=== PATIENT | male | born 1965 | race Caucasian/White ===

== ENCOUNTER 2021-03-10 10:55 | Day surgery (SDC) | payer MEDICARE, MEDICAID ==
[2021-03-08 13:24] LABS: COVID AG,FIA SOURCE NASOPHARYNGEAL
[~2021-03-10] VITALS: Ht 175.3 cm; Wt 109.1 kg
[~2021-03-10 10:55] MED LIST: SODIUM CHLORIDE 0.9% 1,000 ML ONE
[2021-03-10] MEDS ORDERED: SODIUM CHLORIDE 0.9% 1,000 ML IV ONE (11:00)
[2021-03-10] MEDS ORDERED: LIDOCAINE/PF 2% 5 ML VIAL IM ONE (12:00)
[2021-03-10] MEDS ORDERED: PROPOFOL 1% 20 ML VIAL IVP ONE (12:00)
== END 2021-03-10 14:40 | disposition home or self-care (01) ==
LOC: SURGERY 10:55
PROVIDERS: ATTEND Internal Medicine Gastroenterology
DX: R13.10 Dysphagia, unspecified (principal); K22.2 Esophageal obstruction; F41.9 Anxiety disorder, unspecified; I10 Essential (primary) hypertension; Z79.899 Other long term (current) drug therapy; Z98.890 Other specified postprocedural states; Z72.89 Other problems related to lifestyle
CPT/HCPCS: 43239; 43249; 87426; 88305; 88312; C1769; C9803; J2704; J3490; J7030